=== PATIENT | female | born 1930 | race Caucasian/White ===

== ENCOUNTER 2017-12-05 10:34 | Observation (INO) ==
[2017-12-05] MEDS ORDERED: hydrALAZINE 20 MG/1 ML VIAL IV STA ×2 (14:29→15:48)
[2017-12-05] MEDS ORDERED: hydrALAZINE 20 MG/1 ML VIAL ONE (14:33)
[2017-12-05 15:03] LABS: Basophils % 0.5 % (0.0-0.8); Eosinophils # 0.1 10*3/uL (0.0-0.87); Eosinophils % 1.6 % (0.00-10.9); Hematocrit 42.5 VOL% (35.7-47.0); Hemoglobin 14.2 GM/DL (12.0-16.0); Immature Granulocytes % 0.5 %; Immature Granulocytes Absolute 0.04 #; Lymphocytes # 3.1 10*3/uL (1.4-4.0); Lymphocytes % 36.7 % (21.3-54.2); Mean Corpuscular HGB Conc 33.4 GM/DL (32-36); Mean Corpuscular Hemoglobin 31 PG (27-34); Mean Corpuscular Volume 91.4 FL (87-102); Mean Platelet Volume 9.8 FL (9.6-12.0); Monocytes # 0.8 10*3/uL (0.11-0.8); Monocytes % 9.2 % (1.7-12.7); Neutrophils # 4.4 10*3/uL (1.4-7.4); Neutrophils % 51.5 % (38.7-73.9); Platelet Count 146 T/CUMM (130-400); Red Blood Count 4.65 MC/CUMM (3.8-5.5); Red Cell Distribution Width 12.6 % (9.3-17.3); White Blood Count 8.6 T/CUMM (4-12)
[2017-12-05 15:20] LABS: PT Patient Result 10.1 SECS; Partial Thromboplastin Time 23.2 SECS (0-40)
[2017-12-05 15:35] LABS: Osmolality,Calculated 275.7 MOS/KG (273-304)
[2017-12-05] MEDS ORDERED: ACETAMINOPHEN 325 MG TABLET PO ONE (17:23)
[2017-12-05] MEDS ORDERED: ACETAMINOPHEN 325 MG TABLET ONE (17:57)
[2017-12-05] MEDS ORDERED: MORPHINE 2 MG/1 ML SYRINGE IV PRN (19:51)
[2017-12-05] MEDS ORDERED: CHOLESTYRAMINE 4 GM PACK PO PRN (19:51)
[2017-12-05] MEDS ORDERED: cloNIDine 0.1 MG TABLET PO PRN (19:51)
[2017-12-05] MEDS ORDERED: FUROSEMIDE 40 MG/5 ML UDCUP PO ONE (19:51)
[2017-12-05] MEDS ORDERED: ONDANSETRON 4 MG/2 ML VIAL IV PRN (19:51)
[2017-12-05] MEDS ORDERED: ASPIRIN CHEW 81 MG TABLET PO ONE (20:44)
[2017-12-05] MEDS ORDERED: NITROGLYCERIN SL 0.4 MG TABLET SL PRN (20:44)
[2017-12-05] MEDS ORDERED: ALUM/MAG/SIMETH/LIDO VISC 1:1 30 ML BOTTLE PO ONE ×2 (20:52)
[2017-12-05] MEDS ORDERED: LABETALOL 20 MG/4 ML SYRINGE IV PRN (20:57)
[2017-12-05] MEDS ORDERED: ATORVASTATIN 10 MG TABLET PO SCH (21:00)
[2017-12-05] MEDS ORDERED: ENOXAPARIN 40 MG/0.4 ML SYRINGE SUBCUT SCH (21:00)
[2017-12-05] MEDS: POTASSIUM CITRATE 10 MEQ TABLET PO SCH (21:08)
[2017-12-05] MEDS: DOCUSATE SODIUM 100 MG CAPSULE PO SCH ×2 (21:08→21:10)
[2017-12-05 21:13] LABS: Albumin 3.9 G/DL (3.4-5.0); Bilirubin,Direct 0.13 MG/DL (0.0-0.20); Bilirubin,Indirect 0.4 MG/DL (0.0-1.0); Bilirubin,Total 0.5 MG/DL (0.2-1.0); Total Protein 6.7 G/DL (6.4-8.3)
[2017-12-05 21:19] LABS: Risk Ratio 2.83; Thyroid Stimulating Hormone 3.16 uIU/ml (0.358-3.74)
[2017-12-06] MEDS: ACETAMINOPHEN 500 MG TABLET PO SCH ×3 (00:06→14:32)
[2017-12-06] MEDS ORDERED: LOSARTAN 50 MG TABLET PO SCH (09:00)
[2017-12-06] MEDS ORDERED: EZETIMIBE 10 MG TABLET PO SCH (09:00)
[2017-12-06] MEDS ORDERED: BUMETANIDE 1 MG TABLET PO SCH (09:00)
[2017-12-06] MEDS ORDERED: METOPROLOL SUCCINATE XL 50 MG TABLET PO SCH (09:00)
[2017-12-06] MEDS ORDERED: ASPIRIN EC 81 MG TABLET PO SCH (09:00)
[2017-12-06] MEDS ORDERED: PANTOPRAZOLE 40 MG TABLET PO SCH (09:00)
[2017-12-06] MEDS: DOCUSATE SODIUM 100 MG CAPSULE PO SCH (09:14)
[2017-12-06] MEDS: POTASSIUM CITRATE 10 MEQ TABLET PO SCH (09:14)
[2017-12-06] MEDS ORDERED: DIGOXIN 0.125 MG TABLET PO SCH (13:00)
[2017-12-06] MEDS ORDERED: DIGOXIN 0.25 MG TABLET PO ONE (14:00)
[2017-12-06 15:38] VITALS: BP 147/74
== END 2017-12-06 15:30 | disposition home or self-care (01) ==
LOC: N.EDINP 10:34 → N.ED 10:34 → N.EDINP 19:39 → N.2E 19:48
PROVIDERS: ADMIT Internal Medicine; ATTEND Internal Medicine

== ENCOUNTER 2018-11-27 09:35 | Inpatient (IN) ==
[2018-11-27] MEDS ORDERED: MAGNESIUM HYDROXIDE SUSP 30 ML UDCUP PO PRN (11:07)
[2018-11-27] MEDS ORDERED: guaiFENesin 200 MG/10 ML UDCUP PO PRN (11:07)
[2018-11-27] MEDS ORDERED: MYLANTA/LIDO VISC 2:1 300 ML BOTTLE SWISH/SPIT PRN (11:07)
[2018-11-27] MEDS ORDERED: MYLANTA/LIDO VISC 2:1 300 ML BOTTLE SWISH/SWAL PRN (11:07)
[2018-11-27] MEDS ORDERED: LACTULOSE 20 GM/30 ML UDCUP PO PRN (11:07)
[2018-11-27] MEDS ORDERED: TEMAZEPAM 7.5 MG CAPSULE PO PRN (11:07)
[2018-11-27] MEDS ORDERED: ACETAMINOPHEN 325 MG TABLET PO PRN (11:07)
[2018-11-27] MEDS ORDERED: LOPERAMIDE 2 MG CAPSULE PO PRN ×2 (11:07)
[2018-11-27] MEDS ORDERED: ALPRAZolam 0.25 MG TABLET PO PRN (11:07)
[2018-11-27] MEDS ORDERED: BENZTROPINE 2 MG/2 ML AMP IV PRN (11:07)
[2018-11-27] MEDS ORDERED: ALUMINUM/MAGNES/SIMETH MAX STR 30 ML UDCUP PO PRN (11:07)
[2018-11-27] MEDS ORDERED: traMADol 50 MG TABLET PO PRN (11:07)
[2018-11-27] MEDS ORDERED: diphenhydrAMINE CAP 25 MG CAPSULE PO PRN (11:07)
[2018-11-27] MEDS ORDERED: FUROSEMIDE 40 MG/4 ML VIAL IV SCH (11:30)
[2018-11-27 12:02] LABS: Basophils # 0.2 10*3/uL (0.0-0.2); Basophils % 0.8 % (0.0-0.8); Eosinophils # 2.9 10*3/uL (0.0-0.87); Eosinophils % 13.5 % (0.00-10.9); Hemoglobin 13.3 GM/DL (12.0-16.0); Immature Granulocytes % 1.6 %; Immature Granulocytes Absolute 0.34 #; Lymphocytes # 2.6 10*3/uL (1.4-4.0); Lymphocytes % 12.1 % (21.3-54.2); Mean Corpuscular HGB Conc 31.7 GM/DL (32-36); Mean Corpuscular Hemoglobin 29 PG (27-34); Mean Corpuscular Volume 90.7 FL (87-102); Mean Platelet Volume 10.2 FL (9.6-12.0); Neutrophils # 13.7 10*3/uL (1.4-7.4); Platelet Count 220 T/CUMM (130-400); Red Blood Count 4.63 MC/CUMM (3.8-5.5); Red Cell Distribution Width 12.7 % (9.3-17.3); White Blood Count 21.8 T/CUMM (4-12)
[2018-11-27 12:23] LABS: Band Neutrophils 22 % (0-10); Eosinophils 13 % (0-10); Lymphocytes 10 % (20-55); Platelet Estimate Normal; Segmented Neutrophils 47 % (50-85); Total Cells Counted 100
[2018-11-27] MEDS: MORPHINE 4 MG/1 ML VIAL IV PRN ×3 (12:23→20:43)
[2018-11-27 12:24] LABS: Anisocytosis Slight
[2018-11-27 12:31] LABS: Alanine Aminotransferase 20 U/L (13-56); Albumin 2.8 G/DL (3.4-5.0); Alkaline Phosphatase 112 U/L (45-117); Aspartate Amino Transferase 18 U/L (0-37); Bilirubin,Total < 0.39 MG/DL (0.2-1.0); Blood Urea Nitrogen 14 MG/DL (7-18); Calcium 8.9 MG/DL (8.5-10.1); Glucose 152 MG/DL (74-106); Osmolality,Calculated 276.8 MOS/KG (273-304); Potassium 3.7 MMOL/L (3.5-5.1); Sodium 137 MMOL/L (136-145); Total Protein 6.4 G/DL (6.4-8.3)
[2018-11-27 12:45] LABS: Uric Acid 3.5 MG/DL (2.6-6.0)
[2018-11-27] MEDS: fentaNYL 25 MCG/HR PATCH TRANSDERM SCH (13:50)
[2018-11-27] MEDS: LIDOCAINE 5% PATCH TRANSDERM SCH ×2 (13:50→21:36)
[2018-11-27] MEDS: POTASSIUM CHLORIDE 10 MEQ TABLET PO SCH (20:43)
[2018-11-27 21:51] LABS: Apearance,Urine CLEAR (Clear); Bilirubin,Urine Negative (Negative); Blood, Urine Moderate mg/dL (Negative); Glucose,Urine (UA) Negative (Negative); Ketones,Urine Negative (Negative); Mucus,Urine Occasional /LPF (Occasional); Nitrite,Urine Negative (Negative); Protein,Urine Negative; RBC,Urine 3 /HPF (0-4); Renal Epithelial Cells,Urine Occasional /HPF (<1); Squamous Epithelial Cell,Urine Occasional /HPF (0-10); Urine Color Yellow (Yellow); Urine Specific Gravity 1.009 (1.001-1.035); Urine Urobilinogen < 2.0 EU/DL (0.2-1.0); WBC,Urine 11 /HPF (0-6)
[2018-11-28] MEDS: MORPHINE 4 MG/1 ML VIAL IV PRN ×2 (00:44→17:06)
[2018-11-28 05:15] LABS: Basophils # 0.2 10*3/uL (0.0-0.2); Basophils % 0.9 % (0.0-0.8); Eosinophils # 3.4 10*3/uL (0.0-0.87); Eosinophils % 14.5 % (0.00-10.9); Hematocrit 42.6 VOL% (35.7-47.0); Hemoglobin 13.4 GM/DL (12.0-16.0); Immature Granulocytes % 1.4 %; Immature Granulocytes Absolute 0.33 #; Lymphocytes # 4.2 10*3/uL (1.4-4.0); Mean Corpuscular HGB Conc 31.5 GM/DL (32-36); Mean Corpuscular Hemoglobin 29 PG (27-34); Mean Corpuscular Volume 90.6 FL (87-102); Mean Platelet Volume 10.9 FL (9.6-12.0); Monocytes # 2.5 10*3/uL (0.11-0.8); Monocytes % 10.9 % (1.7-12.7); Neutrophils # 12.5 10*3/uL (1.4-7.4); Neutrophils % 54.3 % (38.7-73.9); Platelet Count 228 T/CUMM (130-400); Red Cell Distribution Width 12.7 % (9.3-17.3); White Blood Count 23.1 T/CUMM (4-12)
[2018-11-28 05:45] LABS: Albumin 2.6 G/DL (3.4-5.0); Bilirubin,Total 0.7 MG/DL (0.2-1.0); Calcium 8.9 MG/DL (8.5-10.1); Osmolality,Calculated 278.4 MOS/KG (273-304); Total Protein 6.1 G/DL (6.4-8.3)
[2018-11-28 05:53] LABS: Band Neutrophils 3 % (0-10); Eosinophils 15 % (0-10); Lymphocytes 17 % (20-55); Platelet Estimate Normal; Segmented Neutrophils 55 % (50-85); Total Cells Counted 100
[2018-11-28] MEDS ORDERED: EZETIMIBE 10 MG TABLET PO SCH (09:00)
[2018-11-28] MEDS ORDERED: ASPIRIN EC 81 MG TABLET PO SCH (09:00)
[2018-11-28] MEDS: cefTRIAXone 1,000 MG in SYRINGE 1 EACH IV SCH (09:12)
[2018-11-28] MEDS: METOPROLOL SUCCINATE XL 50 MG TABLET PO SCH (09:14)
[2018-11-28] MEDS: DIGOXIN 0.125 MG TABLET PO SCH (09:14)
[2018-11-28] MEDS: POTASSIUM CHLORIDE 10 MEQ TABLET PO SCH ×2 (09:14→20:26)
[2018-11-28] MEDS: LOSARTAN 50 MG TABLET PO SCH (09:14)
[2018-11-28] MEDS: PANTOPRAZOLE 40 MG TABLET PO SCH (09:14)
[2018-11-28] MEDS: amLODIPine 5 MG TABLET PO SCH (09:14)
[2018-11-28] MEDS: LIDOCAINE 5% PATCH TRANSDERM SCH (09:16)
[2018-11-28] MEDS ORDERED: BUMETANIDE 1 MG TABLET PO SCH (09:30)
[2018-11-28] MEDS: ONDANSETRON 4 MG/2 ML VIAL IV PRN (19:42)
[2018-11-29] MEDS: MORPHINE 4 MG/1 ML VIAL IV PRN ×3 (04:13→18:07)
[2018-11-29 04:44] LABS: Basophils # 0.1 10*3/uL (0.0-0.2); Basophils % 0.5 % (0.0-0.8); Eosinophils # 3.3 10*3/uL (0.0-0.87); Eosinophils % 14.9 % (0.00-10.9); Hematocrit 45.5 VOL% (35.7-47.0); Hemoglobin 13.9 GM/DL (12.0-16.0); Immature Granulocytes % 1.4 %; Immature Granulocytes Absolute 0.31 #; Lymphocytes # 2.8 10*3/uL (1.4-4.0); Lymphocytes % 12.5 % (21.3-54.2); Mean Corpuscular HGB Conc 30.5 GM/DL (32-36); Mean Corpuscular Hemoglobin 28 PG (27-34); Mean Corpuscular Volume 91.5 FL (87-102); Mean Platelet Volume 10.7 FL (9.6-12.0); Monocytes # 2.8 10*3/uL (0.11-0.8); Monocytes % 12.6 % (1.7-12.7); Neutrophils % 58.1 % (38.7-73.9); Platelet Count 226 T/CUMM (130-400); Red Blood Count 4.97 MC/CUMM (3.8-5.5); Red Cell Distribution Width 12.7 % (9.3-17.3); White Blood Count 22.4 T/CUMM (4-12)
[2018-11-29 05:14] LABS: Band Neutrophils 5 % (0-10); Eosinophils 25 % (0-10); Lymphocytes 8 % (20-55); Segmented Neutrophils 58 % (50-85); Total Cells Counted 100
[2018-11-29 05:15] LABS: Hypochromasia 1+; Microcytosis Slight; Platelet Estimate Normal
[2018-11-29] MEDS: LOSARTAN 50 MG TABLET PO SCH (09:49)
[2018-11-29] MEDS: PANTOPRAZOLE 40 MG TABLET PO SCH (09:49)
[2018-11-29] MEDS: cefTRIAXone 1,000 MG in SYRINGE 1 EACH IV SCH (09:49)
[2018-11-29] MEDS: METOPROLOL SUCCINATE XL 50 MG TABLET PO SCH (09:49)
[2018-11-29] MEDS: LIDOCAINE 5% PATCH TRANSDERM SCH (09:49)
[2018-11-29] MEDS: amLODIPine 5 MG TABLET PO SCH (09:49)
[2018-11-29] MEDS: POTASSIUM CHLORIDE 10 MEQ TABLET PO SCH ×2 (09:49→20:41)
[2018-11-29] MEDS: DIGOXIN 0.125 MG TABLET PO SCH (09:49)
[2018-11-30] MEDS: MORPHINE 4 MG/1 ML VIAL IV PRN ×2 (05:12→10:13)
[2018-11-30] MEDS: amLODIPine 5 MG TABLET PO SCH (08:59)
[2018-11-30] MEDS: LOSARTAN 50 MG TABLET PO SCH (08:59)
[2018-11-30] MEDS: DIGOXIN 0.125 MG TABLET PO SCH (09:01)
[2018-11-30] MEDS: PANTOPRAZOLE 40 MG TABLET PO SCH (09:02)
[2018-11-30] MEDS: fentaNYL 25 MCG/HR PATCH TRANSDERM SCH (09:03)
[2018-11-30] MEDS: METOPROLOL SUCCINATE XL 50 MG TABLET PO SCH (09:03)
[2018-11-30] MEDS: POTASSIUM CHLORIDE 10 MEQ TABLET PO SCH ×2 (09:03→21:20)
[2018-11-30] MEDS: cefTRIAXone 1,000 MG in SYRINGE 1 EACH IV SCH (09:03)
[2018-11-30] MEDS: LIDOCAINE 5% PATCH TRANSDERM SCH (09:06)
[2018-12-01 04:58] LABS: Basophils # 0.2 10*3/uL (0.0-0.2); Basophils % 0.8 % (0.0-0.8); Eosinophils # 3.3 10*3/uL (0.0-0.87); Eosinophils % 15.4 % (0.00-10.9); Hematocrit 44.1 VOL% (35.7-47.0); Hemoglobin 13.5 GM/DL (12.0-16.0); Immature Granulocytes % 1.4 %; Immature Granulocytes Absolute 0.31 #; Lymphocytes # 3.3 10*3/uL (1.4-4.0); Lymphocytes % 15.1 % (21.3-54.2); Mean Corpuscular HGB Conc 30.6 GM/DL (32-36); Mean Corpuscular Hemoglobin 28 PG (27-34); Mean Corpuscular Volume 92.1 FL (87-102); Mean Platelet Volume 10.9 FL (9.6-12.0); Monocytes # 2.3 10*3/uL (0.11-0.8); Monocytes % 10.5 % (1.7-12.7); Neutrophils # 12.2 10*3/uL (1.4-7.4); Neutrophils % 56.8 % (38.7-73.9); Platelet Count 235 T/CUMM (130-400); Red Blood Count 4.79 MC/CUMM (3.8-5.5); Red Cell Distribution Width 12.6 % (9.3-17.3); White Blood Count 21.5 T/CUMM (4-12)
[2018-12-01 05:24] LABS: Calcium 9.2 MG/DL (8.5-10.1); Potassium 4.6 MMOL/L (3.5-5.1)
[2018-12-01 05:46] LABS: Band Neutrophils 14 % (0-10); Eosinophils 15 % (0-10); Lymphocytes 14 % (20-55); Myelocytes 1 %; Platelet Estimate Adequate; Segmented Neutrophils 45 % (50-85); Total Cells Counted 100
[2018-12-01] MEDS: cefTRIAXone 1,000 MG in SYRINGE 1 EACH IV SCH (08:31)
[2018-12-01] MEDS: MORPHINE 4 MG/1 ML VIAL IV PRN (08:31)
[2018-12-01] MEDS: METOPROLOL SUCCINATE XL 50 MG TABLET PO SCH (08:35)
[2018-12-01] MEDS: amLODIPine 5 MG TABLET PO SCH (08:35)
[2018-12-01] MEDS: DIGOXIN 0.125 MG TABLET PO SCH (08:35)
[2018-12-01] MEDS: PANTOPRAZOLE 40 MG TABLET PO SCH (08:35)
[2018-12-01] MEDS: POTASSIUM CHLORIDE 10 MEQ TABLET PO SCH ×2 (08:36→20:25)
[2018-12-01] MEDS: LOSARTAN 50 MG TABLET PO SCH (08:36)
[2018-12-01] MEDS: LIDOCAINE 5% PATCH TRANSDERM SCH (08:37)
[2018-12-01] MEDS: HYDROmorphone 2 MG/1 ML VIAL IV PRN ×2 (14:06→20:21)
[2018-12-02] MEDS: HYDROmorphone 2 MG/1 ML VIAL IV PRN ×5 (02:36→23:59)
[2018-12-02 04:58] LABS: Basophils # 0.2 10*3/uL (0.0-0.2); Basophils % 0.8 % (0.0-0.8); Eosinophils # 3.6 10*3/uL (0.0-0.87); Eosinophils % 15.3 % (0.00-10.9); Hematocrit 42.4 VOL% (35.7-47.0); Hemoglobin 13.1 GM/DL (12.0-16.0); Immature Granulocytes % 1.7 %; Lymphocytes # 3.2 10*3/uL (1.4-4.0); Lymphocytes % 13.7 % (21.3-54.2); Mean Corpuscular HGB Conc 30.9 GM/DL (32-36); Mean Corpuscular Hemoglobin 28 PG (27-34); Mean Corpuscular Volume 91.6 FL (87-102); Mean Platelet Volume 10.6 FL (9.6-12.0); Monocytes # 2.6 10*3/uL (0.11-0.8); Monocytes % 11.1 % (1.7-12.7); Neutrophils # 13.3 10*3/uL (1.4-7.4); Neutrophils % 57.4 % (38.7-73.9); Platelet Count 241 T/CUMM (130-400); Red Blood Count 4.63 MC/CUMM (3.8-5.5); Red Cell Distribution Width 12.7 % (9.3-17.3); White Blood Count 23.2 T/CUMM (4-12)
[2018-12-02 05:32] LABS: Calcium 9.2 MG/DL (8.5-10.1); Potassium 4.4 MMOL/L (3.5-5.1)
[2018-12-02 06:42] LABS: Band Neutrophils 10 % (0-10); Eosinophils 18 % (0-10); Lymphocytes 15 % (20-55); Myelocytes 1 %; Segmented Neutrophils 39 % (50-85)
[2018-12-02 06:43] LABS: Platelet Estimate Normal; Total Cells Counted 100
[2018-12-02] MEDS: cefTRIAXone 1,000 MG in SYRINGE 1 EACH IV SCH (10:19)
[2018-12-02] MEDS: LIDOCAINE 5% PATCH TRANSDERM SCH (10:20)
[2018-12-02] MEDS: amLODIPine 5 MG TABLET PO SCH (10:24)
[2018-12-02] MEDS: PANTOPRAZOLE 40 MG TABLET PO SCH (10:24)
[2018-12-02] MEDS: LOSARTAN 50 MG TABLET PO SCH (10:24)
[2018-12-02] MEDS: DIGOXIN 0.125 MG TABLET PO SCH (10:25)
[2018-12-02] MEDS: POTASSIUM CHLORIDE 10 MEQ TABLET PO SCH ×2 (10:25→21:29)
[2018-12-02] MEDS: METOPROLOL SUCCINATE XL 50 MG TABLET PO SCH (10:27)
[2018-12-02] MEDS ORDERED: fentaNYL 50 MCG/HR PATCH TRANSDERM SCH (12:00)
[2018-12-03 04:55] LABS: Basophils # 0.2 10*3/uL (0.0-0.2); Basophils % 0.8 % (0.0-0.8); Eosinophils # 3.8 10*3/uL (0.0-0.87); Eosinophils % 15.2 % (0.00-10.9); Hematocrit 44.9 VOL% (35.7-47.0); Hemoglobin 13.7 GM/DL (12.0-16.0); Immature Granulocytes % 1.8 %; Immature Granulocytes Absolute 0.44 #; Lymphocytes # 2.8 10*3/uL (1.4-4.0); Lymphocytes % 11.4 % (21.3-54.2); Mean Corpuscular HGB Conc 30.5 GM/DL (32-36); Mean Corpuscular Hemoglobin 28 PG (27-34); Mean Corpuscular Volume 91.3 FL (87-102); Mean Platelet Volume 10.3 FL (9.6-12.0); Monocytes # 2.5 10*3/uL (0.11-0.8); Neutrophils # 15.2 10*3/uL (1.4-7.4); Neutrophils % 60.8 % (38.7-73.9); Platelet Count 231 T/CUMM (130-400); Red Blood Count 4.92 MC/CUMM (3.8-5.5); Red Cell Distribution Width 12.7 % (9.3-17.3)
[2018-12-03] MEDS: HYDROmorphone 2 MG/1 ML VIAL IV PRN ×2 (05:10→09:39)
[2018-12-03 05:18] LABS: Band Neutrophils 7 % (0-10); Eosinophils 19 % (0-10); Hypochromasia 1+; Lymphocytes 12 % (20-55); Ovalocytes Slight; Segmented Neutrophils 55 % (50-85); Total Cells Counted 100
[2018-12-03 05:19] LABS: Microcytosis Slight
[2018-12-03] MEDS ORDERED: DEXAMETHASONE 10 MG/1 ML VIAL IV ONE (07:55)
[2018-12-03] MEDS ORDERED: FAMOTIDINE 20 MG/2 ML VIAL IV ONE (07:56)
[2018-12-03] MEDS ORDERED: diphenhydrAMINE 50 MG/1 ML VIAL IV ONE (07:56)
[2018-12-03] MEDS ORDERED: ACETAMINOPHEN 500 MG TABLET PO ONE (07:57)
[2018-12-03] MEDS ORDERED: GRANISETRON 1 MG/1 ML VIAL IV ONE (08:00)
[2018-12-03] MEDS: DIGOXIN 0.125 MG TABLET PO SCH (09:23)
[2018-12-03] MEDS: PANTOPRAZOLE 40 MG TABLET PO SCH (09:24)
[2018-12-03] MEDS: METOPROLOL SUCCINATE XL 50 MG TABLET PO SCH (09:24)
[2018-12-03] MEDS: amLODIPine 5 MG TABLET PO SCH (09:24)
[2018-12-03] MEDS: LOSARTAN 50 MG TABLET PO SCH (09:24)
[2018-12-03] MEDS: LIDOCAINE 5% PATCH TRANSDERM SCH (09:25)
[2018-12-03] MEDS: cefTRIAXone 1,000 MG in SYRINGE 1 EACH IV SCH (09:25)
[2018-12-03] MEDS: POTASSIUM CHLORIDE 10 MEQ TABLET PO SCH ×2 (09:25→20:54)
[2018-12-03] MEDS ORDERED: SODIUM CHLORIDE 0.9% IV ONE (10:00)
[2018-12-03] MEDS ORDERED: RITUXIMAB IV ONE (10:00)
[2018-12-03] MEDS ORDERED: CARBOplatin 200 MG in SODIUM CHLORIDE 0.9% 250 ML IV ONE (10:00)
[2018-12-03] MEDS: SERTRALINE 25 MG TABLET PO SCH (20:54)
[2018-12-04] MEDS: HYDROmorphone 2 MG/1 ML VIAL IV PRN (09:55)
[2018-12-04] MEDS: LIDOCAINE 5% PATCH TRANSDERM SCH (09:56)
[2018-12-04] MEDS: POTASSIUM CHLORIDE 10 MEQ TABLET PO SCH ×2 (09:57→20:43)
[2018-12-04] MEDS: amLODIPine 5 MG TABLET PO SCH (09:57)
[2018-12-04] MEDS: PANTOPRAZOLE 40 MG TABLET PO SCH (09:57)
[2018-12-04] MEDS: METOPROLOL SUCCINATE XL 50 MG TABLET PO SCH (09:57)
[2018-12-04] MEDS: LOSARTAN 50 MG TABLET PO SCH (09:57)
[2018-12-04] MEDS: DIGOXIN 0.125 MG TABLET PO SCH (09:58)
[2018-12-04] MEDS: cefTRIAXone 1,000 MG in SYRINGE 1 EACH IV SCH (09:58)
[2018-12-04] MEDS: KETOROLAC 15 MG/1 ML VIAL IV SCH ×3 (12:45→22:26)
[2018-12-04] MEDS: SERTRALINE 25 MG TABLET PO SCH (20:43)
[2018-12-05] MEDS: HYDROmorphone 2 MG/1 ML VIAL IV PRN ×2 (01:40→07:48)
[2018-12-05 04:45] LABS: Basophils # 0.1 10*3/uL (0.0-0.2); Basophils % 0.3 % (0.0-0.8); Eosinophils # 3.9 10*3/uL (0.0-0.87); Eosinophils % 14.5 % (0.00-10.9); Hemoglobin 12.2 GM/DL (12.0-16.0); Immature Granulocytes % 2.5 %; Immature Granulocytes Absolute 0.67 #; Lymphocytes # 1.7 10*3/uL (1.4-4.0); Lymphocytes % 6.4 % (21.3-54.2); Mean Corpuscular HGB Conc 30.5 GM/DL (32-36); Mean Corpuscular Hemoglobin 28 PG (27-34); Mean Platelet Volume 10.5 FL (9.6-12.0); Monocytes # 2.6 10*3/uL (0.11-0.8); Monocytes % 9.7 % (1.7-12.7); Neutrophils # 17.6 10*3/uL (1.4-7.4); Neutrophils % 66.6 % (38.7-73.9); Platelet Count 209 T/CUMM (130-400); Red Blood Count 4.35 MC/CUMM (3.8-5.5); Red Cell Distribution Width 12.9 % (9.3-17.3); White Blood Count 26.5 T/CUMM (4-12)
[2018-12-05 05:00] LABS: Albumin 2.4 G/DL (3.4-5.0); Bilirubin,Total 0.4 MG/DL (0.2-1.0); Calcium 8.9 MG/DL (8.5-10.1); Osmolality,Calculated 286.5 MOS/KG (273-304); Potassium 4.6 MMOL/L (3.5-5.1); Total Protein 5.7 G/DL (6.4-8.3)
[2018-12-05 05:17] LABS: Band Neutrophils 3 % (0-10); Eosinophils 15 % (0-10); Hypochromasia 1+; Lymphocytes 5 % (20-55); Platelet Estimate Adequate; Segmented Neutrophils 70 % (50-85); Total Cells Counted 100
[2018-12-05 05:18] LABS: Microcytosis Slight
[2018-12-05] MEDS ORDERED: fentaNYL 100 MCG/2 ML VIAL IV ONE (08:43)
[2018-12-05] MEDS ORDERED: fentaNYL 75 MCG/HR PATCH TRANSDERM SCH (09:00)
[2018-12-05] MEDS: cefTRIAXone 1,000 MG in SYRINGE 1 EACH IV SCH (09:07)
[2018-12-05] MEDS: LIDOCAINE 5% PATCH TRANSDERM SCH (09:07)
[2018-12-05] MEDS: PANTOPRAZOLE 40 MG TABLET PO SCH (09:08)
[2018-12-05] MEDS: amLODIPine 5 MG TABLET PO SCH (09:08)
[2018-12-05] MEDS: LOSARTAN 50 MG TABLET PO SCH (09:08)
[2018-12-05] MEDS: METOPROLOL SUCCINATE XL 50 MG TABLET PO SCH (09:08)
[2018-12-05] MEDS: DIGOXIN 0.125 MG TABLET PO SCH (09:08)
[2018-12-05] MEDS: POTASSIUM CHLORIDE 10 MEQ TABLET PO SCH ×2 (09:08→22:21)
[2018-12-05] MEDS: oxyCODONE/ACETAMINOPHEN 5-325 MG TABLET PO PRN ×2 (11:12→16:14)
[2018-12-05] MEDS ORDERED: HYDROmorphone 2 MG/1 ML VIAL IV PRN (12:19)
[2018-12-05] MEDS: GABAPENTIN 100 MG CAPSULE PO SCH ×2 (14:44→22:21)
[2018-12-05] MEDS: DULoxetine 20 MG CAPSULE PO SCH (14:45)
[2018-12-05] MEDS: SERTRALINE 25 MG TABLET PO SCH (22:22)
[2018-12-06] MEDS ORDERED: fentaNYL 50 MCG/HR PATCH TRANSDERM SCH (09:00)
[2018-12-06] MEDS: ONDANSETRON 4 MG/2 ML VIAL IV PRN (09:33)
[2018-12-06] MEDS: LIDOCAINE 5% PATCH TRANSDERM SCH (11:26)
[2018-12-06] MEDS: oxyCODONE/ACETAMINOPHEN 5-325 MG TABLET PO PRN (11:42)
[2018-12-06] MEDS: amLODIPine 5 MG TABLET PO SCH (13:56)
[2018-12-06] MEDS: DULoxetine 20 MG CAPSULE PO SCH (13:56)
[2018-12-06] MEDS: LOSARTAN 50 MG TABLET PO SCH (13:56)
[2018-12-06] MEDS: DIGOXIN 0.125 MG TABLET PO SCH (13:56)
[2018-12-06] MEDS: PANTOPRAZOLE 40 MG TABLET PO SCH (13:57)
[2018-12-06] MEDS: METOPROLOL SUCCINATE XL 50 MG TABLET PO SCH (13:57)
[2018-12-06] MEDS ORDERED: HYDROmorphone 2 MG/1 ML VIAL IV PRN (14:10)
[2018-12-06] MEDS ORDERED: GABAPENTIN 100 MG CAPSULE PO SCH (21:00)
[2018-12-07] MEDS: LIDOCAINE 5% PATCH TRANSDERM SCH (08:58)
[2018-12-07] MEDS: oxyCODONE/ACETAMINOPHEN 5-325 MG TABLET PO PRN (08:59)
[2018-12-07] MEDS: PANTOPRAZOLE 40 MG TABLET PO SCH (09:00)
[2018-12-07] MEDS: LOSARTAN 50 MG TABLET PO SCH (09:00)
[2018-12-07] MEDS: DULoxetine 20 MG CAPSULE PO SCH (09:01)
[2018-12-07] MEDS: amLODIPine 5 MG TABLET PO SCH (09:01)
[2018-12-07] MEDS: DIGOXIN 0.125 MG TABLET PO SCH (09:01)
[2018-12-07] MEDS: METOPROLOL SUCCINATE XL 50 MG TABLET PO SCH (09:01)
[2018-12-07 15:41] VITALS: BP 115/59
== END 2018-12-07 17:08 | disposition hospice, home (50) | DRG 181 ==
LOC: N.4E → SUATTDRO 09:54 → N.4E 12-01 14:56
PROVIDERS: ADMIT Internal Medicine; ATTEND Internal Medicine Nephrology